=== PATIENT | male | born 1960 | race Caucasian/White ===

== ENCOUNTER 2019-08-26 05:27 | Day surgery (SDC) | payer MEDICAID ==
[~2019-08-26] VITALS: Ht 193 cm; Wt 158.8 kg
[~2019-08-26 05:27] MED LIST: FERR325T6 PO
[2019-08-26] MEDS ORDERED: LACTATED RINGERS 1,000 ML IV SCH (06:30)
[2019-08-26] MEDS ORDERED: BUPIVACAINE/EPINEPH/PF 0.25%/0.0005 10ML ONE (07:08)
[2019-08-26] MEDS ORDERED: MORPHINE SULFATE/PF 1MG/ML 10ML AMP ONE (07:09)
[2019-08-26] MEDS ORDERED: BUPIVACAINE HCL/EPINEPHRINE 0.5%/0.0005 30ML ONE (08:13)
[2019-08-26] MEDS ORDERED: NEOSTIGMINE METHYLSULFATE 1MG/ML 10 ML VIAL ONE (09:11)
[2019-08-26] MEDS ORDERED: PROPOFOL 200MG/20ML VIAL IV ONE (09:11)
[2019-08-26] MEDS ORDERED: FENTANYL CITRATE/PF 50MCG/ML 2ML VIAL ONE (09:11)
[2019-08-26] MEDS ORDERED: ROCURONIUM BROMIDE 10MG/ML VIAL 5ML IV ONE (09:11)
[2019-08-26] MEDS ORDERED: GLYCOPYRROLATE 0.2 MG/ML 2ML VIAL ONE (09:12)
[2019-08-26] MEDS ORDERED: LIDOCAINE HCL/PF 1% 10 MG/ML 5ML VIAL ONE (09:12)
[2019-08-26] MEDS ORDERED: ONDANSETRON HCL 4MG/2ML INJ ONE (09:12)
[2019-08-26] MEDS ORDERED: METOCLOPRAMIDE HCL 10MG/2ML VIAL ONE (09:12)
[2019-08-26] MEDS ORDERED: EPHEDRINE SULFATE 50MG/ML VIAL ONE (09:12)
[2019-08-26] MEDS ORDERED: SUCCINYLCHOLINE CHLORIDE 200MG/10ML IV ONE (09:12)
[2019-08-26] MEDS ORDERED: MIDAZOLAM HCL 2 MG/2 ML VIAL ONE (09:12)
[2019-08-26] MEDS ORDERED: SODIUM CHLORIDE 0.9% 10ML VIAL ONE (09:12)
[2019-08-26] MEDS ORDERED: CEFAZOLIN SODIUM 1000MG/VIAL ONE (09:12)
[2019-08-26] MEDS ORDERED: EPINEPHRINE 1:1000 1 MG/ML AMP ONE (09:38)
[2019-08-26] MEDS ORDERED: HYDROCODONE/ACETAMINOPHEN 10/325MG TABLET PO PRN (11:00)
== END 2019-08-26 13:00 | disposition home or self-care (01) ==
LOC: OR 05:27
PROVIDERS: ATTEND Orthopaedic Surgery
DX: S83.232A Complex tear of medial meniscus, current injury, left knee, initial encounter (principal); M22.42 Chondromalacia patellae, left knee; J45.909 Unspecified asthma, uncomplicated; E66.9 Obesity, unspecified; G89.29 Other chronic pain; I10 Essential (primary) hypertension; Z79.1 Long term (current) use of non-steroidal anti-inflammatories (NSAID); Z79.899 Other long term (current) drug therapy; Z98.890 Other specified postprocedural states; Z98.84 Bariatric surgery status; Z68.41 Body mass index [BMI] 40.0-44.9, adult; Z90.49 Acquired absence of other specified parts of digestive tract; X58.XXXA Exposure to other specified factors, initial encounter; Y93.89 Activity, other specified; Y92.89 Other specified places as the place of occurrence of the external cause; Y99.8 Other external cause status
CPT/HCPCS: 29881; 88304; 88311; 97116; 97161; J0171; J0330; J0690; J2250; J2274; J2405; J2704; J2710; J2765; J3010; J3490